=== PATIENT | female | born 1985 | race African-American/Black ===

== ENCOUNTER 2019-01-20 15:06 | Emergency (ER) | payer BC ==
[~2019-01-20] VITALS: Ht 154.9 cm; Wt 59.0 kg
[~2019-01-20 15:06] MED LIST: NO MEDS
[2019-01-20 16:20] LABS: HEMOGLOBIN 11.4 g/dl (12.0-16.0); IMMATURE GRANULOCYTES 0.2 % (0.0-5.0); MEAN CELL VOLUME 82.2 fL CALC (80.0-100.0); MEAN CORPUSCULAR HGB CONC 31.7 g/L CALC (32.0-36.0); NEUT# 2.15 thou/uL (2.00-7.15); RED BLOOD COUNT 4.38 mill/uL (4.20-5.60); RED CELL DISTRI WIDTH 14.5 % (11.5-15.5)
[2019-01-20 16:38] LABS: ANION GAP 10 (6-22 (CALC)); BUN 12 mg/dL (7-17); BUN/CREATININE RATIO 15 (12-20 (CALC)); CARBON DIOXIDE 26 mmol/l (22-30); CHLORIDE 103 mmol/l (95-108); CREATININE 0.8 mg/dL (0.5-1.0); GFR > 60 ML/MIN (>=60 (CALC)); GFR FOR AFR.AMER. > 60 ML/MIN (>=60 (CALC)); SODIUM 136 mmol/l (137-146)
[2019-01-20 18:00] VITALS: BP 128/77
== END 2019-01-20 18:00 | disposition home or self-care (01) | DRG 556 ==
LOC: ED 15:06
PROVIDERS: Family Medicine
DX: M79.601 Pain in right arm (principal); L90.5 Scar conditions and fibrosis of skin